=== PATIENT | male | born 1990 | race Caucasian/White ===

== ENCOUNTER 2017-08-23 10:38 | Inpatient (IN) | payer OTHER ==
[~2017-08-23] VITALS: Ht 188 cm; Wt 93.0 kg
[2017-08-23 11:46] LABS: HEMATOCRIT 48.3 % (38.0-50.0); HEMOGLOBIN 16.5 G/DL (12.5-16.6); MCH 32.2 PG (29.0-34.0); MCHC 34.2 G/DL (30.0-36.0); MCV 94.2 FL (86-99); PLATELET COUNT 185 K/uL (156-360); RBC DIS.WIDTH-SD 45.1 % (39-53); RED BLOOD COUNT 5.13 M/uL (4.00-5.50); WHITE BLOOD COUNT 7.3 K/uL (4.1-10.2)
[2017-08-23 11:51] LABS: INTER. NORMALIZED RATIO 1.1
[2017-08-23 11:54] LABS: PTT 27.9 SEC (25-37)
[2017-08-23 11:55] LABS: ALBUMIN 3.7 g/dL (3.2-4.8); CHLORIDE 106 mEq/L (99-109); POTASSIUM 4.2 mEq/L (3.7-5.4); SODIUM 142 mEq/L (136-147)
[2017-08-23 11:57] LABS: GLUCOSE 90 mg/dL (70-99)
[2017-08-23 11:59] LABS: TOTAL BILIRUBIN 1.1 mg/dL (0.0-1.0)
[2017-08-23 12:00] LABS: SERUM ETHYL ALCOHOL 62 mg/dL
[2017-08-23 12:01] LABS: ALKALINE PHOSPHATASE 126 IU/L (3-129); CREATININE 0.7 mg/dL (0.6-1.3); GFR ESTIMATE (CALCULATED) > 59 mL/min/ (58.99-99999)
[2017-08-23 12:02] LABS: AST (GOT) 13 IU/L (2-34); UREA NITROGEN (BUN) 5 mg/dL (9-23)
[2017-08-23 12:04] LABS: ALT (GPT) 12 IU/L (3-49); LIPASE 8 U/L (1.0-51.0)
[2017-08-23 12:07] LABS: TROP-I INTERPRETATION NEGATIVE; TROPONIN-I < 0.01 ng/mL (0.0-0.30)
[2017-08-23 17:08] LABS: APPEARANCE CLEAR ((CLEAR)); BILIRUBIN NEGATIVE; BLOOD NEGATIVE; COLOR YELLOW ((YELLOW)); GLUCOSE (STRIP) NEGATIVE; KETONES NEGATIVE; LEUKOCYTES NEGATIVE; NITRITE NEGATIVE; PROTEIN (STRIP) NEGATIVE; SPECIFIC GRAVITY 1.036 (1.000-1.030); UROBILINOGEN 0.2 MG/DL (0.2-1.0)
[2017-08-23 17:16] LABS: AMPHETAMINE NEGATIVE (500 ng/mL); BARBITURATES NEGATIVE (200 ng/mL); BENZODIAZEPINES PRESUMPTIVE POSITIVE (150 ng/mL); BUPRENORPHINE NEGATIVE (10 ng/mL); COCAINE NEGATIVE (150 ng/mL); METHADONE NEGATIVE (200 ng/mL); METHAMPHETAMINE NEGATIVE (500 ng/mL); OPIATES (MORPHINE) NEGATIVE (100 ng/mL); OXYCODONE NEGATIVE (100 ng/mL); PHENCYCLIDINE NEGATIVE (25 ng/mL); PROPOXYPHENE NEGATIVE (300 ng/mL); THC CANNABINOIDS PRESUMPTIVE POSITIVE (50 ng/mL); TRICYCLIC ANTIDEPRESSANTS NEGATIVE (300 ng/mL)
[2017-08-23 17:38] LABS: MAGNESIUM 2.1 mg/dL (1.3-2.7)
[2017-08-23 17:53] LABS: BENZODIAZEPINES, URINE SCREEN Negative (200 ng/mL)
[2017-08-23 18:18] LABS: LACTATE DEHYDROGENASE 218 IU/L (20-246)
[2017-08-23 20:35] VITALS: BP 124/64
[2017-08-23 22:30] VITALS: BP 118/69
[2017-08-23 23:59] VITALS: BP 118/69
[2017-08-24 03:38] VITALS: BP 109/58
[2017-08-24 06:29] LABS: BASOPHIL (%) 0.8 % (0-1); BASOPHIL COUNT 0.1 K/uL (0-0.1); EOSINOPHIL (%) 7.5 % (0-5); EOSINOPHIL COUNT 0.5 K/uL (0-0.3); HEMATOCRIT 45.5 % (38.0-50.0); HEMOGLOBIN 14.8 G/DL (12.5-16.6); IMMATURE GRANULOCYTE (%) 0.8 % (0.0-0.7); LYMPHOCYTE (%) 26.6 % (15-42); LYMPHOCYTE COUNT 1.9 K/uL (1.0-2.8); MCH 30.6 PG (29.0-34.0); MCHC 32.5 G/DL (30.0-36.0); MCV 94.2 FL (86-99); MONOCYTE (%) 8.9 % (3-12); MONOCYTE COUNT 0.6 K/uL (0-0.8); NEUTROPHIL (%) 55.4 % (45-76); NEUTROPHIL COUNT 3.9 K/uL (1.8-6.4); PLATELET COUNT 156 K/uL (156-360); RBC DIS.WIDTH-CV 12.8 % (11.8-14.6); RBC DIS.WIDTH-SD 43.9 % (39-53); RED BLOOD COUNT 4.83 M/uL (4.00-5.50); WHITE BLOOD COUNT 7.1 K/uL (4.1-10.2)
[2017-08-24 06:50] LABS: CHLORIDE 105 MEQ/L (99-109); CREATININE 0.7 MG/DL (0.6-1.3); GFR ESTIMATE (CALCULATED) > 59 mL/min/ (58.99-99999); GLUCOSE 99 mg/dL (70-99); POTASSIUM 4.7 MEQ/L (3.7-5.4); SODIUM 139 MEQ/L (136-147); UREA NITROGEN (BUN) 4 mg/dL (9-23)
[2017-08-24 08:14] VITALS: BP 122/70
[2017-08-24 08:40] LABS: TROP-I INTERPRETATION NEGATIVE; TROPONIN-I < 0.01 ng/mL (0.0-0.30)
[2017-08-24 12:07] VITALS: BP 128/73
[2017-08-24 16:43] VITALS: BP 103/54
[2017-08-24 19:39] VITALS: BP 119/69
[2017-08-24 23:59] VITALS: BP 131/60
[2017-08-25 03:47] VITALS: BP 116/61
[2017-08-25 04:15] LABS: HEMATOCRIT 44.9 % (38.0-50.0); HEMOGLOBIN 15.4 G/DL (12.5-16.6); MCH 32.1 PG (29.0-34.0); MCHC 34.3 G/DL (30.0-36.0); MCV 93.5 FL (86-99); PLATELET COUNT 173 K/uL (156-360); RBC DIS.WIDTH-CV 12.8 % (11.8-14.6); RBC DIS.WIDTH-SD 44.1 % (39-53)
[2017-08-25 04:23] LABS: CHLORIDE 101 mEq/L (99-109); POTASSIUM 4.2 mEq/L (3.7-5.4); SODIUM 137 mEq/L (136-147)
[2017-08-25 04:24] LABS: MAGNESIUM 1.8 mg/dL (1.3-2.7)
[2017-08-25 04:27] LABS: GLUCOSE 98 mg/dL (70-99)
[2017-08-25 04:29] LABS: CREATININE 0.7 mg/dL (0.6-1.3); GFR ESTIMATE (CALCULATED) > 59 mL/min/ (58.99-99999)
[2017-08-25 04:30] LABS: UREA NITROGEN (BUN) 5 mg/dL (9-23)
[2017-08-25 08:33] VITALS: BP 132/64
[2017-08-25 11:21] VITALS: BP 125/58
[2017-08-25 17:28] VITALS: BP 123/51
[2017-08-25 20:18] VITALS: BP 126/76
[2017-08-25 23:31] VITALS: BP 113/57
[2017-08-26 04:24] VITALS: BP 126/62
[2017-08-26 06:12] LABS: HEMATOCRIT 45.2 % (38.0-50.0); MCH 31.4 PG (29.0-34.0); MCHC 33.2 G/DL (30.0-36.0); MCV 94.6 FL (86-99); PLATELET COUNT 191 K/uL (156-360); RED BLOOD COUNT 4.78 M/uL (4.00-5.50); WHITE BLOOD COUNT 7.1 K/uL (4.1-10.2)
[2017-08-26 07:49] VITALS: BP 114/62
[2017-08-26] MEDS ORDERED: FOLIC ACID1 MG PO (09:20)
[2017-08-26] MEDS ORDERED: Thiamine,Vitamin B1 PO (09:20)
[2017-08-26] MEDS ORDERED: XARELTO15 MG PO (09:20)
[2017-08-26] MEDS ORDERED: THERAGRAN1 TABLET PO (09:20)
[2017-08-26] MEDS ORDERED: OXYCODONE-APAP1 EACH PO (09:20)
[2017-08-26] MEDS ORDERED: XARELTO20 MG PO (09:20)
[2017-08-26 11:47] VITALS: BP 114/55
[2017-08-26 15:44] VITALS: BP 130/66
[2017-08-29 17:37] LABS: ACTIVATED PROTEIN C RESIST+ 4.5 ratio (>=2.1); ANTITHROMBIN III ACTIVITY+ 91 (80-120); DRVVT Mixing Study Interp Not Indicated (()); FACTOR VIII ACTIVITY+ 132 % (50-180); PROTEIN C FUNCTIONAL ACTIVITY+ 85 % (70-180); PTT-LA 60 sec (<=40); Protein S, Free 21 % normal (57-171); Thrombosis Consult Level Limited (()); dRVVT Screen 38 sec (<=45)
== END 2017-08-26 19:20 | disposition home or self-care (01) | DRG 299 ==
LOC: EME 10:38 → 3EAST 16:54 → EDOF 16:54 → ENRESERV 16:57 → 3EAST 20:20
PROVIDERS: Anesthesiology; Internal Medicine; Nurse Practitioner Family
DX: I82.402 Acute embolism and thrombosis of unspecified deep veins of left lower extremity (principal); I26.99 Other pulmonary embolism without acute cor pulmonale; Z59.0 Homelessness; F17.210 Nicotine dependence, cigarettes, uncomplicated; F10.229 Alcohol dependence with intoxication, unspecified; F12.10 Cannabis abuse, uncomplicated; F13.10 Sedative, hypnotic or anxiolytic abuse, uncomplicated
CPT/HCPCS: 71046; 71275; 80048; 80053; 81003; 81240 90; 82232; 83090 90; 83615; 83690; 83735; 84484; 84999; 85025; 85027; 85240 90; 85300 90; 85303 90; 85305 90; 85306 90; 85610; 85613 90; 85730; 85730 90; 86146 90; 86147 90; 93005; 93306; 93971; 99281; 99285; G0480; J2060; J3010; J7030